=== PATIENT | female | born 2000 | race Caucasian/White ===

== ENCOUNTER 2018-11-19 01:30 | Emergency (ER) | payer OTHER ==
[~2018-11-19] VITALS: Ht 167.6 cm; Wt 72.6 kg
[2018-11-19 01:40] VITALS: BP 134/92
[2018-11-19] MEDS ORDERED: IBUPROFEN 800 MG TAB PO ONE (02:05)
[2018-11-19 03:10] VITALS: BP 129/87
== END 2018-11-19 03:10 | disposition home or self-care (01) ==
LOC: MED 01:30
DX: S92.354A Nondisplaced fracture of fifth metatarsal bone, right foot, initial encounter for closed fracture (principal); W18.39XA Other fall on same level, initial encounter; Y92.89 Other specified places as the place of occurrence of the external cause; Y93.89 Activity, other specified; Y99.8 Other external cause status
CPT/HCPCS: 29515; 73630; 99283; Q0092